=== PATIENT | female | born 1960 | race Caucasian/White ===

== ENCOUNTER 2017-05-09 08:42 | Emergency (ER) | payer BC ==
--- NOTE | 2017-05-09 09:05 | UC ---
Back Pain HPI - HPI Summary HPI Summary: 56 year old female presents with complains of left sided mid back pain with no trauma. - History of Current Complaint Chief Complaint: UCBackPain Stated Complaint: MID BACK PAIN Time Seen by Provider: 05/09/17 09:04 Hx Obtained From: Patient Onset/Duration: Sudden Onset Timing: Lasting Days Severity Initially: Moderate Severity Currently: Moderate Character: Sharp Aggravating Factor(s): Movement, Lifting - Allergies/Home Medications Allergies/Adverse Reactions: Allergies Allergy/AdvReac Type Severity Reaction Status Date / Time Penicillins Allergy Unknown Unknown Verified 05/09/17 08:55 Reaction Details Home Medications: Home Medications Albuterol HFA INHALER* [Ventolin HFA Inhaler*] 1 - 2 puff INH Q4H PRN 05/09/17 [ History Confirmed 05/09/17] Allergy Shots 2 inj SUBCUT SEE INSTRUCTIONS 05/09/17 [History Confirmed 05/09/17 ] Calcium Carbonate [Calcium 600] 600 mg PO DAILY 05/09/17 [History Confirmed ] Cetirizine* [ZyrTEC 10 MG TAB*] 10 mg PO DAILY 05/09/17 [History Confirmed 05/09] Cholecalciferol TAB* [Vitamin D TAB*] 2,000 units PO DAILY 05/09/17 [History Confirmed 05/09/17] Ibuprofen TAB* [Advil TAB*] 400 mg PO Q6H PRN 05/09/17 [History Confirmed ] Levothyroxine TAB* [Synthroid TAB*] 100 mcg PO DAILY 05/09/17 [History Confirmed 05/09/17] Montelukast Sodium TAB* [Singulair TAB*] 10 mg PO DAILY 05/09/17 [History Confirmed 05/09/17] Simvastatin TAB(NF) [Zocor(NF)] 20 mg PO DAILY 05/09/17 [History Confirmed 05/09] PMH/Surg Hx/FS Hx/Imm Hx Previously Healthy: Yes - Surgical History Surgical History: Yes Surgery Procedure, Year, and Place: 3 surgeries right ankle-ANKLE PINS REMOVED 1979,C-SECT 1989 - Family History Known Family History: Positive: Unknown - ADOPTED - Social History Alcohol Use: Occasionally Substance Use Type: None Smoking Status (MU): Never Smoked Tobacco - Immunization History Most Recent Influenza Vaccination: March 2017 Review of Systems Constitutional: Negative Skin: Negative Eyes: Negative ENT: Negative Respiratory: Negative Cardiovascular: Negative Gastrointestinal: Negative Genitourinary: Negative Motor: Negative Neurovascular: Negative Musculoskeletal: Other: - left sided back pain Neurological: Negative Psychological: Negative All Other Systems Reviewed And Are Negative: Yes Physical Exam Triage Information Reviewed: Yes Vital Signs: Initial Vital Signs Temp 36.8 C 05/09/17 08:53 Pulse 80 05/09/17 08:53 Resp 16 05/09/17 08:53 BP 121/80 05/09/17 08:53 Pulse Ox 98 05/09/17 08:53 Vital Signs Reviewed: Yes Eye Exam: Normal ENT Exam: Normal Dental Exam: Normal Neck exam: Normal Neck: Positive: 1 Respiratory Exam: Normal Cardiovascular Exam: Normal Abdominal Exam: Normal Musculoskeletal: Positive: Other: - left sided mid back pain Neurological Exam: Normal Psychological Exam: Normal Skin Exam: Normal Back Pain Course/Dx - Differential Dx/Diagnosis Provider Diagnoses: left sided mid back pain Discharge - Discharge Plan Condition: Stable Disposition: HOME Prescriptions: Ibuprofen TAB* [Motrin TAB* 800 MG] 800 mg PO Q6H #30 tab Methocarbamol TAB* [Robaxin 500 MG TAB*] 500 mg PO TID PRN #30 tab PRN Reason: Spasms - Back Patient Education Materials: Muscle Spasm (ED) Referrals: [facility] therapy,PT [Medical Doctor] - Delvin Reaves MD [Primary Care Provider] -
[2017-05-09 09:21] VITALS: BP 121/80
== END 2017-05-09 09:25 | disposition home or self-care (01) ==
LOC: UCCORT 08:42
DX: M54.9 Dorsalgia, unspecified (principal)
CPT/HCPCS: 81003; 99212; G0463

== ENCOUNTER 2017-11-20 17:10 | Emergency (ER) | payer BC ==
[2017-11-20 17:30] VITALS: BP 133/82
--- NOTE | 2017-11-20 18:11 | ED ---
Upper Extremity Pain - HPI Summary HPI Summary: 57 yr old female with the complaint of left hand and wrist pain. Onset of symptoms this evening at 5 pm when she tripped on the sidewalk and landed on left hand, and left knee. She had no LOC. No facial or neck injury or pain. No back pain, No chest pain, no abdominal pain. No hip pain. she has pain mostly in the left hand 1st metacarpal area and also the wrist. She is able to walk fine and use shoulders and elbows fine. Last Tetanus shot 6 years - History of Current Complaint Chief Complaint: UCUpperExtremity Stated Complaint: LEFT HAND PAIN S/P FALL Time Seen by Provider: 11/20/17 17:37 - Allergies/Home Medications Allergies/Adverse Reactions: Allergies Allergy/AdvReac Type Severity Reaction Status Date / Time Penicillins Allergy Unknown Verified 11/20/17 17:31 Reaction Details environmental Allergy Congestion Uncoded 11/20/17 17:31 PMH/Surg Hx/FS Hx/Imm Hx Endocrine/Hematology History: Reports: Hx Thyroid Disease Denies: Hx Diabetes Cardiovascular History: Reports: Other Cardiovascular Problems/Disorders - CHOLESTEROL Denies: Hx Hypertension, Hx Pacemaker/ICD Respiratory History: Reports: Hx Asthma Denies: Hx Chronic Obstructive Pulmonary Disease (COPD) GI History: Denies: Hx Ulcer Musculoskeletal History: Reports: Other Musculoskeletal History - OSTEOPENIA Sensory History: Denies: Hx Hearing Aid Psychiatric History: Denies: Hx Panic Disorder - Surgical History Surgery Procedure, Year, and Place: 3 surgeries right ankle-ANKLE PINS REMOVED 1979,C-SECT 1989 Infectious Disease History: No Infectious Disease History: Denies: Hx Clostridium Difficile, Hx Hepatitis, Hx Human Immunodeficiency Virus (HIV), Hx of Known/Suspected MRSA, Hx Shingles, Hx Tuberculosis, Hx Known/ Suspected VRE, Hx Known/Suspected VRSA, History Other Infectious Disease, Traveled Outside the [place] in Last 30 Days - Family History Known Family History: Positive: Unknown - ADOPTED - Social History Alcohol Use: Occasionally Substance Use Type: Reports: None Smoking Status (MU): Never Smoked Tobacco Review of Systems Positive: Other - left hand pain, left wrist pain All Other Systems Reviewed And Are Negative: Yes Physical Exam Triage Information Reviewed: Yes Vital Signs On Initial Exam: Initial Vitals Temp Pulse Resp BP Pulse Ox 97.9 F 114 18 133/82 97 11/20/17 17:21 11/20/17 17:21 11/20/17 17:21 11/20/17 17:21 11/20/17 17:21 Vital Signs Reviewed: Yes Appearance: Positive: Well-Appearing, No Pain Distress Skin: Positive: Warm Head/Face: Positive: Normal Head/Face Inspection Eyes: Positive: EOMI Neck: Positive: Nontender Respiratory/Lung Sounds: Positive: Clear to Auscultation, Breath Sounds Present Cardiovascular: Positive: RRR. Negative: Murmur Abdomen Description: Positive: Nontender Musculoskeletal: Positive: Strength/ROM Intact, Other - tender over the left hand 1st metacarpal and diffuse over the left wrist, but no snuff box tenderness. Her left elbow is FROM and non tender, good supination and pronation. Shoulder left side is non tender. She has small abrasion to left knee area, but ambulates well and no deformity or swelling. Neurological: Positive: Sensory/Motor Intact, Alert, Oriented to Person Place, Time, CN Intact II-III Psychiatric: Positive: Normal - Crowheart Coma Scale Best Eye Response: 4 - Spontaneous Best Motor Response: 6 - Obeys Commands Best Verbal Response: 5 - Oriented Coma Scale Total: 15 Diagnostics - Vital Signs Vital Signs Temp Pulse Resp BP Pulse Ox 11/20/17 17:21 97.9 F 114 18 133/82 97 - Laboratory Lab Statement: Any lab studies that have been ordered have been reviewed, and results considered in the medical decision making process. - Radiology left hand wrist Xray Interpretation: No Acute Changes Radiology Interpretation Completed By: Radiologist Course/Dx - Course Course Of Treatment: 57 yr old with contusion to the left hand and wrist. Abrasion to knee. Plan DC home. [place]. - Diagnoses Provider Diagnoses: Contusion of hand, left, Abrasion of knee, left Discharge - Sign-Out/Discharge Documenting (check all that apply): Discharge/Admit/Transfer - Discharge Plan Condition: Good Disposition: HOME Patient Education Materials: Contusion in Adults (ED), Abrasion (ED) Referrals: Delvin Reaves MD [Primary Care Provider] - 2 Days - Billing Disposition and Condition Condition: GOOD Disposition: HOME
--- NOTE | 2017-11-20 18:25 | RAD ---
HISTORY: Left hand and wrist trauma COMPARISONS: None VIEWS: 7, Frontal, lateral, and oblique views of the left wrist and hand FINDINGS: BONE DENSITY: Normal. BONES: There is no displaced fracture. There is subchondral cyst formation of the scapholunate-trapezium articulation. JOINTS: There is mild osteoarthritis of the first CMC joint, the scaphoid trapezium articulation, and mild osteophytosis of the interphalangeal joints. ALIGNMENT: There is no dislocation. SOFT TISSUES: Unremarkable. OTHER FINDINGS: None. IMPRESSION: OSTEOARTHRITIS. NO ACUTE OSSEOUS INJURY. IF SYMPTOMS PERSIST, RECOMMEND REPEAT IMAGING.
== END 2017-11-20 18:58 | disposition home or self-care (01) ==
LOC: UCCORT 17:10
DX: S80.212A Abrasion, left knee, initial encounter (principal); S60.222A Contusion of left hand, initial encounter; S60.212A Contusion of left wrist, initial encounter; W01.0XXA Fall on same level from slipping, tripping and stumbling without subsequent striking against object, initial encounter; Y93.01 Activity, walking, marching and hiking; Y92.480 Sidewalk as the place of occurrence of the external cause; Z88.0 Allergy status to penicillin
CPT/HCPCS: 99211; G0463

== ENCOUNTER 2017-12-06 10:00 | Emergency (ER) | payer BC ==
[2017-12-06 11:21] VITALS: BP 110/78
--- NOTE | 2017-12-06 11:47 | UC ---
Hand/Wrist HPI - HPI Summary HPI Summary: Patient fell on 11/20/17. She was seen here after the fall and had x-rays of her left wrist and hand. No fractures were seen. She followed up with her primary care yesterday for ongoing pain and swelling. Her doctor ordered x-rays ; however, he ordered the wrong side. Patient is unable to have the x-rays done given the wrong location. Because of the ongoing pain she has checked into urgent care for repeat evaluation and x-rays. She identifies the areas of pain to the base of her left thumb and wrist area plus the left fourth finger. She denies any numbness or tingling. She has already arranged for follow-up visit with [facility] this coming Friday. - History Of Current Complaint Chief Complaint: UCUpperExtremity Stated Complaint: LEFT WRIST/HAND PAIN Time Seen by Provider: 12/06/17 11:30 Hx Obtained From: Patient Onset/Duration: Sudden Onset Pain Intensity: 2 Aggravating Factor(s): Movement Alleviating Factor(s): Nothing Associated Signs And Symptoms: Positive: Swelling. Negative: Numbness/Tingling - Allergies/Home Medications Allergies/Adverse Reactions: Allergies Allergy/AdvReac Type Severity Reaction Status Date / Time Penicillins Allergy Unknown Verified 12/06/17 11:21 Reaction Details environmental Allergy Congestion Uncoded 12/06/17 11:21 PMH/Surg Hx/FS Hx/Imm Hx - Additional Past Medical History Additional PMH: ALLERGIES, OSTEOPENIA Endocrine History: Thyroid Disease, Dyslipidemia - Surgical History Surgical History: Yes Surgery Procedure, Year, and Place: 3 surgeries right ankle-ANKLE PINS REMOVED 1979,C-SECT 1989 - Family History Known Family History: Positive: Unknown - ADOPTED - Social History Occupation: Employed Full-time Lives: With Family Alcohol Use: Occasionally Substance Use Type: None Smoking Status (MU): Never Smoked Tobacco - Immunization History Most Recent Influenza Vaccination: 04/06 Most Recent Tetanus Shot: 2011 Vaccination Up to Date: Yes Review of Systems Constitutional: Negative Skin: Negative Eyes: Negative ENT: Negative Respiratory: Negative Cardiovascular: Negative Gastrointestinal: Negative Genitourinary: Negative Motor: Negative Neurovascular: Negative Musculoskeletal: Other: - pAIN WITH MILD SWELLING l WRIST AND l 4TH FINGER Neurological: Negative Psychological: Negative Is Patient Immunocompromised?: No All Other Systems Reviewed And Are Negative: Yes Physical Exam Triage Information Reviewed: Yes Appearance: Well-Appearing Vital Signs: Initial Vital Signs Temp 98.1 F 12/06/17 11:16 Pulse 72 12/06/17 11:16 Resp 16 12/06/17 11:16 BP 110/78 12/06/17 11:16 Pulse Ox 100 12/06/17 11:16 Vital Signs Reviewed: Yes Eyes: Positive: Conjunctiva Clear ENT: Positive: Normal ENT inspection Neck: Positive: Supple, Nontender Respiratory: Positive: Lungs clear, Normal breath sounds Cardiovascular: Positive: RRR, No Murmur Abdomen Description: Positive: Nontender, No Organomegaly, Soft Bowel Sounds: Positive: Present Musculoskeletal: Positive: Other: - Left upper extremity exam: Shoulder elbow and forearm are atraumatic. Left wrist and hand compared to the right shows slight swelling. Patient has tenderness over the snuffbox as well as to the base of the left thumb and left fourth finger. He has gross sensorivascular motor function. Neurological: Positive: Alert Psychological: Positive: Age Appropriate Behavior Skin Exam: Normal Diagnostics - Radiology No standard instances Xray Interpretation: No Acute Changes - L wrist and hand Radiology Interpretation Completed By: Radiologist - L wrist and hand Hand/Wrist Course/Dx - Course Course Of Treatment: no overt fx, no concern for infection - Differential Dx/Diagnosis Provider Diagnoses: Acute pain L wrist and L 4th finger post fall Discharge - Sign-Out/Discharge Documenting (check all that apply): Discharge/Admit/Transfer - Discharge Plan Condition: Stable Disposition: HOME Patient Education Materials: Sprain (ED) Referrals: Delvin Reaves MD [Primary Care Provider] - If Needed Additional Instructions: FOLLOW UP [facility] THIS COMING FRIDAY SCHEDULED(3 DAYS FROM TODAY ). SPLINT UNTIL CLEARED. - Billing Disposition and Condition Condition: STABLE Disposition: Home
--- NOTE | 2017-12-06 12:12 | RAD ---
HISTORY: ongoing pain post injury COMPARISONS: November 21, 2015 VIEWS: 8, Frontal, lateral, and oblique views of the left hand and wrist with scaphoid deviation views of the wrist FINDINGS: BONE DENSITY: Normal. BONES: There is no displaced fracture. JOINTS: There is subchondral cyst formation of the scaphoid along the STT joint. There is mild osteoarthritis of the first CMC joint and interphalangeal joints. ALIGNMENT: There is no dislocation. SOFT TISSUES: Unremarkable. OTHER FINDINGS: None. IMPRESSION: MILD OSTEOARTHRITIS. NO ACUTE OSSEOUS INJURY. IF SYMPTOMS PERSIST, RECOMMEND REPEAT IMAGING.
== END 2017-12-06 12:36 | disposition home or self-care (01) ==
LOC: UCCORT 10:00
DX: M25.532 Pain in left wrist (principal); M79.645 Pain in left finger(s); W19.XXXD Unspecified fall, subsequent encounter; Z88.0 Allergy status to penicillin
CPT/HCPCS: 99213; G0463

== ENCOUNTER 2018-04-08 17:33 | Emergency (ER) | payer BC, OTHER ==
[2018-04-08 18:46] VITALS: BP 124/80
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
--- NOTE | 2018-04-09 07:28 | RAD ---
INDICATION: Right thumb injury. TECHNIQUE: 3 views of the right thumb were obtained. FINDINGS: The bones are in normal alignment. No acute fracture is seen. Incidental note is made of [id number] osteoarthritic change in the interphalangeal joint. IMPRESSION: NO EVIDENCE FOR ACUTE FRACTURE. R0
== END 2018-04-08 19:28 | disposition home or self-care (01) ==
LOC: UCCORT 17:33
DX: S63.601A Unspecified sprain of right thumb, initial encounter (principal); E03.9 Hypothyroidism, unspecified; E78.5 Hyperlipidemia, unspecified; X58.XXXA Exposure to other specified factors, initial encounter; Y92.9 Unspecified place or not applicable; Z88.0 Allergy status to penicillin
CPT/HCPCS: 99212; G0463

== ENCOUNTER 2018-07-16 15:50 | Emergency (ER) | payer BC, OTHER ==
[2018-07-16 16:30] VITALS: BP 124/71
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
== END 2018-07-16 17:02 | disposition home or self-care (01) ==
LOC: UCCORT 15:50
DX: S13.4XXA Sprain of ligaments of cervical spine, initial encounter (principal); Y04.8XXA Assault by other bodily force, initial encounter; Y92.219 Unspecified school as the place of occurrence of the external cause; Y99.0 Civilian activity done for income or pay; R51 Headache
CPT/HCPCS: 99212; G0463